=== PATIENT | female | born 1990 | race Caucasian/White ===

== ENCOUNTER 2017-03-23 11:11 | Emergency (ER) | payer MEDICAID ==
[2017-03-23] MEDS ORDERED: IBUPROFEN 600 MG TAB PO ONE ×2 (11:19→11:20)
[2017-03-23 11:21] VITALS: BP 116/82; PULSE 77; RESP 16; TEMP 98.4; O2SAT 96
--- NOTE | 2017-03-23 11:35 | EDPHY ---
H & P Stated Complaint: ST and fatigue x 2 days. Exposed to strep. Time Seen by Provider: 03/23/17 11:15 HPI/ROS: Chief Complaint: Sore throat, fever HPI: 27-year-old presenting with 2 days of sore throat, pain with swallowing, general fatigue and malaise with nausea for the last 2 days. She was exposed to someone who was recently diagnosed with strep. Some subjective fevers at home has not checked her temperature. No vomiting. No abdominal pain. No skin rashes. No palpitations. No lightheadedness or syncope. ROS: 10 point Review of Systems is negative except as noted in the HPI. PMH: Depression Medications: Antidepressants Allergies: No known drug allergies Social History: Positive smoking, no alcohol, no recreational drug use Family History: non-contributory Physical Exam: Gen: Awake, Alert, No Distress HEENT: Nose: no rhinorrhea Eyes: PERRLA, EOMI Mouth: Moist mucosa mild oral pharyngeal erythema without exudate or edema. Neck: Supple, no JVD Chest: nontender, lungs clear to auscultation Heart: S1, S2 normal, no murmur Abd: Soft, non-tender, no guarding Back: no CVA tenderness, no midline tenderness Ext: no edema, non-tender Skin: no rash Neuro: CN II-XII intact, Sensation grossly intact, Strength 5/5 in bilateral upper and lower extremities - Personal History LMP (Females 10-55): IUD In Place Current Tetanus Diphtheria and Acellular Pertussis (TDAP): Yes Tetanus Vaccine Date: < 10 years - Medical/Surgical History Hx Asthma: No Hx Chronic Respiratory Disease: No Hx Diabetes: No Hx Cardiac Disease: No Hx Renal Disease: No Hx Cirrhosis: No Hx Alcoholism: No Hx HIV/AIDS: No Hx Splenectomy or Spleen Trauma: No Other PMH: Depression, anxiety - Social History Smoking Status: Current every day smoker Constitutional: Initial Vital Signs Temperature (C) 36.9 C 03/23/17 11:13 Heart Rate 77 03/23/17 11:13 Respiratory Rate 16 03/23/17 11:13 Blood Pressure 116/82 H 03/23/17 11:13 O2 Sat (%) 96 03/23/17 11:13 O2 Delivery Mode Room Air Allergies/Adverse Reactions: No Known Allergies Allergy (Verified 03/23/17 11:21) Home Medications: Medication Instructions Recorded Amoxicillin 500 mg PO TID 10 Days 03/23/17 Hydroxyzine HCl 03/23/17 Zoloft 100mg (*) 03/23/17 Medical Decision Making ED Course/Re-evaluation: Rapid strep is positive. Will treat with amoxicillin. Follow up with her physician in 4-5 days for re-evaluation. - Data Points Laboratory Results: 03/23/17 11:35 Group A Strep Screen POSITIVE H (NEGATIVE) Medications Given: Discontinued Medications Ibuprofen (Motrin) 600 mg PO EDNOW ONE Stop: 03/23/17 11:21 Last Admin: 03/23/17 11:20 Dose: 600 mg Departure - Departure Disposition: Home, Routine, Self-Care Clinical Impression: Strep pharyngitis Condition: Good Instructions: Strep Throat (ED) Additional Instructions: Please take your full course of antibiotics. You may alternate acetaminophen with ibuprofen every 4 hours for fevers, chills , aches or pains. Follow up with your physician in 4-5 days for re-evaluation if symptoms are not improving. Make sure to wash your hands frequently with soap and water. Prescriptions: Amoxicillin 500 mg PO TID 10 Days
== END 2017-03-23 11:57 | disposition home or self-care (01) ==
LOC: CED 11:11
DX: J02.0 Streptococcal pharyngitis (principal); F17.200 Nicotine dependence, unspecified, uncomplicated
CPT/HCPCS: 87880-PO

== ENCOUNTER 2017-06-11 14:22 | Emergency (ER) | payer MEDICAID ==
[2017-06-11 14:35] VITALS: RESP 18; O2SAT 96
--- NOTE | 2017-06-11 15:22 | EDPHY ---
H & P Stated Complaint: sore throat Time Seen by Provider: 06/11/17 15:14 HPI/ROS: CHIEF COMPLAINT: Sore throat HISTORY OF PRESENT ILLNESS: The patient is a 27-year-old female who comes to the emergency department complaining of a sore throat. She states that she noticed white spots on a couple of days ago and then today began to feel pain and nausea E and a mild body aches. No fever. No diaphoresis. No shortness 10th. No cough. REVIEW OF SYSTEMS: Constitutional: denies: chills, fever, recent illness, recent injury EENTM: See HPI Respiratory: denies: cough, shortness of breath Cardiac: denies: chest pain, irregular heart rate, lightheadedness, palpitations Gastrointestinal/Abdominal: denies: abdominal pain, diarrhea, nausea, vomiting, blood streaked stools Genitourinary: denies: dysuria, frequency, hematuria, pain Musculoskeletal: denies: joint pain, muscle pain Skin: denies: lesions, rash, jaundice, bruising Neurological: denies: headache, numbness, paresthesia, tingling, dizziness, weakness Hematologic/Lymphatic: denies: blood clots, easy bleeding, easy bruising Immunologic/allergic: denies: HIV/AIDS, transplant EXAM: GENERAL: Well-appearing, well-nourished and in no acute distress. HEAD: Atraumatic, normocephalic. EYES: Pupils equal round and reactive to light, extraocular movements intact, sclera anicteric, conjunctiva are normal. ENT: TMs normal, nares patent, oropharynx with mild erythema, no exudate. Moist mucous membranes. NECK: Normal range of motion, supple without lymphadenopathy or JVD. LUNGS: Breath sounds clear to auscultation bilaterally and equal. No wheezes rales or rhonchi. HEART: Regular rate and rhythm without murmurs, rubs or gallops. ABDOMEN: Soft, nontender, normoactive bowel sounds. No guarding, no rebound. No masses appreciated. BACK: No CVA tenderness, no spinal tenderness, step-offs or deformities EXTREMITIES: Normal range of motion, no pitting or edema. No clubbing or cyanosis. NEUROLOGICAL: Cranial nerves II through XII grossly intact. Normal speech, normal gait. 5/5 strength, normal movement in all extremities, normal sensation PSYCH: Normal mood, normal affect. SKIN: Warm, dry, normal turgor, no visible rashes or lesions. Source: Patient Exam Limitations: No limitations - Personal History LMP (Females 10-55): Irregular Current Tetanus/Diphtheria Vaccine: Yes Tetanus Vaccine Date: < 10 years - Medical/Surgical History Hx Asthma: No Hx Chronic Respiratory Disease: No Hx Diabetes: No Hx Cardiac Disease: No Hx Renal Disease: No Hx Cirrhosis: No Hx Alcoholism: No Hx HIV/AIDS: No Hx Splenectomy or Spleen Trauma: No Other PMH: Depression, anxiety, strept throat - Family History Significant Family History: No pertinent family hx - Social History Smoking Status: Current every day smoker Alcohol Use: Sober Drug Use: None Constitutional: Initial Vital Signs Temperature (C) 37.6 C 06/11/17 14:29 Heart Rate 78 06/11/17 14:29 Respiratory Rate 18 06/11/17 14:29 Blood Pressure 130/65 H 06/11/17 14:29 O2 Sat (%) 96 06/11/17 14:29 O2 Delivery Mode Room Air Allergies/Adverse Reactions: No Known Allergies Allergy (Verified 03/23/17 11:21) Home Medications: Medication Instructions Recorded Zoloft 100mg (*) 03/23/17 AZITHROMYCIN [Z-PACK] 250 mg PO DAILY #6 tab 06/11/17 Medical Decision Making ED Course/Re-evaluation: Patient's breath smells consistent with strep throat. Her rapid strep is negative but PCR is pending. I will start her on azithromycin. This worked for in the past. I do not feel any splenomegaly exam. Differential Diagnosis: Partial list of the Differential diagnosis considered include but were not limited to; strep throat, mononucleosis, viral pharyngitis and although unlikely based on the history and physical exam, I also considered sinusitis, pneumonia, otitis, sepsis, meningitis. I discussed these differential diagnoses and the plan with the patient as well as the usual and expected course. The patient understands that the diagnosis is provisional and that in medicine we are not always correct and that further workup is often warranted. Usual and customary warnings were given. All of the patient's questions were answered. The patient was instructed to return to the emergency department should the symptoms at all worsen or return, otherwise to followup with the physician as we discussed. - Data Points Laboratory Results: 09/15/17 09/15/17 Unknown 14:45 Group A Strep Screen NEGATIVE (NEGATIVE) Group A Strep DNA Pending Departure - Departure Disposition: Home, Routine, Self-Care Clinical Impression: Acute pharyngitis Qualifiers: Pharyngitis/tonsillitis etiology: unspecified etiology Qualified Code(s): J02.9 - Acute pharyngitis, unspecified Condition: Fair Instructions: Pharyngitis (ED) Referrals: Doctor Not,On Staff, [Primary Care Provider] - As per Instructions Chucho Shaver MD [[facility] [place] Primary Care Provider] - As per Instructions Prescriptions: AZITHROMYCIN [Z-PACK] 250 mg PO DAILY #6 tab
[2017-06-11 15:31] VITALS: BP 118/72; PULSE 86; TEMP 98.4
== END 2017-06-11 15:31 | disposition home or self-care (01) ==
LOC: CED 14:22
DX: J02.9 Acute pharyngitis, unspecified (principal); F17.200 Nicotine dependence, unspecified, uncomplicated
CPT/HCPCS: 87880-PO